=== PATIENT | female | born 1975 | race Caucasian/White ===

== ENCOUNTER → 2017-08-25 | Outpatient (CLI) | payer OTHER | END | disposition home or self-care (01) | LOC: LAB 12:20 → LAB SHORT 12:20 | DX: R30.0 Dysuria (principal) | CPT/HCPCS: 87086 ==

== ENCOUNTER 2018-07-09 16:00 | Inpatient (IN) | payer OTHER ==
[~2018-07-09] VITALS: Ht 167.6 cm; Wt 75.2 kg
[2018-07-09] MEDS ORDERED: Verotin-Gr Cap1 EACH PO (16:27)
[2018-07-09 16:55] LABS: BASOPHILS ABSOLUTE AUTO 0.01 K/mm3 (0.00-0.23); BASOPHILS PERCENT AUTO 0 % (0-2); EOSINOPHILS PERCENT AUTO 0 % (0-6); Hematocrit 35.3 % (33.0-51.0); Hemoglobin 11.9 g/dL (11.5-16.0); IMMATURE GRAN ABSOLUTE AUTO 0.03 K/mm3 (0.00-0.10); IMMATURE GRAN PERCENT AUTO 1 % (0-1); LYMPHOCYTES ABSOLUTE AUTO 1.32 K/mm3 (0.84-5.20); LYMPHOCYTES PERCENT AUTO 22 % (21-46); MONOCYTES ABSOLUTE AUTO 0.39 K/mm3 (0.16-1.47); MONOCYTES PERCENT AUTO 7 % (4-13); Mean Corpuscular HGB 32.4 pg (26.0-34.0); Mean Corpuscular HGB Conc 33.7 g/dL (31.5-36.5); Mean Corpuscular Volume 96 fL (80-100); Mean Platelet Volume 11.1 fL (9.1-12.4); NEUTROPHILS ABSOLUTE AUTO 4.21 K/mm3 (1.96-9.15); NEUTROPHILS PERCENT AUTO 71 % (41-73); Platelet Count 248 K/mm3 (150-400); RDW Coefficient Variation 12.8 % (11.7-14.2); RDW Standard Deviation 44.9 fL (35.1-46.3); Red Blood Cell Count 3.67 M/mm3 (3.80-5.20); White Blood Cell Count 5.96 K/mm3 (4.00-11.30)
--- NOTE | 2018-07-11 02:00 | NUR ---
PT UNABLE TO GET UP DUE TO LEG STILL BEING NUMB. TOWELS PLACED UNDER PT SO PT CAN TRY AND VOID, PT UNABLE TO. RN UNABLE TO HELP PT VOID WITH USE OF FUNDAL PRESSURE. WILL CONT TO MONITOR PT VOIDING STATUS AND FUNDAL HEIGHT.
[2018-07-11 05:50] LABS: BASOPHILS ABSOLUTE AUTO 0.02 K/mm3 (0.00-0.23); BASOPHILS PERCENT AUTO 0 % (0-2); EOSINOPHILS PERCENT AUTO 0 % (0-6); Hematocrit 31.7 % (33.0-51.0); Hemoglobin 10.2 g/dL (11.5-16.0); IMMATURE GRAN ABSOLUTE AUTO 0.09 K/mm3 (0.00-0.10); IMMATURE GRAN PERCENT AUTO 1 % (0-1); LYMPHOCYTES ABSOLUTE AUTO 1.17 K/mm3 (0.84-5.20); LYMPHOCYTES PERCENT AUTO 9 % (21-46); MONOCYTES ABSOLUTE AUTO 0.72 K/mm3 (0.16-1.47); MONOCYTES PERCENT AUTO 6 % (4-13); Mean Corpuscular HGB 31.8 pg (26.0-34.0); Mean Corpuscular HGB Conc 32.2 g/dL (31.5-36.5); Mean Platelet Volume 11.3 fL (9.1-12.4); NEUTROPHILS ABSOLUTE AUTO 10.81 K/mm3 (1.96-9.15); NEUTROPHILS PERCENT AUTO 84 % (41-73); Platelet Count 202 K/mm3 (150-400); RDW Coefficient Variation 13.2 % (11.7-14.2); RDW Standard Deviation 47.1 fL (35.1-46.3); Red Blood Cell Count 3.21 M/mm3 (3.80-5.20); White Blood Cell Count 12.81 K/mm3 (4.00-11.30)
[2018-07-11 05:51] LABS: Mean Corpuscular Volume 99 fL (80-100)
--- NOTE | 2018-07-11 19:13 | NUR ---
REPORT TO VIRGIE CALDERON
[2018-07-12] MEDS ORDERED: IBUP800 PO (10:07)
[2018-07-12] MEDS ORDERED: Percocet 5-3251 EACH PO (10:07)
--- NOTE | 2018-07-12 10:21 | NUR ---
PRESCRIPTION FOR [facility]S OINTMENT CALLED INTO [facility].
--- NOTE | 2018-07-12 13:58 | NUR ---
PT DISCHARGED HOME WITH NB AND SO. NO ACUTE DISTRESS NOTED. PRESCRIPTION FOR IBUPROFEN AND PERCOCET GIVEN TO PT. PRESCRIPTION FOR [facility]MENT CALLED INTO [facility] AND MESSAGE LEFT. DISCHARGE INSTRUCTIONS REVIEWED WITH PT AND SO, BOTH VERBALIZED UNDERSTANDING AND DENY ANY FURTHER QUESTIONS OR CONCERNS. PT AMBULATORY TO CAR.
== END 2018-07-12 12:48 | disposition home or self-care (01) | DRG 807 ==
LOC: OBS 16:00 → BC 16:08 → OBS 16:15 → BC 16:16
PROVIDERS: ADMIT Nurse Practitioner Obstetrics & Gynecology
PROC: 10D07Z6 Extraction of Products of Conception, Vacuum, Via Natural or Artificial Opening (ICD-10-PCS; principal; 2018-07-11)
PROC: 6A550ZT Pheresis of Cord Blood Stem Cells, Single (ICD-10-PCS; 2018-07-11)
PROC: 10907ZC Drainage of Amniotic Fluid, Therapeutic from Products of Conception, Via Natural or Artificial Opening (ICD-10-PCS; 2018-07-11)
PROC: 3E033VJ Introduction of Other Hormone into Peripheral Vein, Percutaneous Approach (ICD-10-PCS; 2018-07-11)
DX: O76 Abnormality in fetal heart rate and rhythm complicating labor and delivery (principal); Z37.0 Single live birth; Z3A.39 39 weeks gestation of pregnancy; O66.0 Obstructed labor due to shoulder dystocia
CPT/HCPCS: 36415; 51702; 85025; 85460; 96372; J1885; J2001; J2210; J2405; J2590; J3010; J7120

== ENCOUNTER 2020-03-17 08:04 | Day surgery (SDC) | payer OTHER ==
[~2020-03-17] VITALS: Ht 167.6 cm; Wt 54.1 kg
[~2020-03-17 08:04] MED LIST: IBUP800 PO; Percocet 5-3251 EACH PO; Verotin-Gr Cap1 EACH PO
[2020-03-17] MEDS ORDERED: SERT50 PO (08:49)
--- NOTE | 2020-03-17 09:49 | NUR ---
03/17/20 0949 Layo Stephenson ABDOMEN PREPPED BY [facility].[place].
--- NOTE | 2020-03-17 10:52 | NUR ---
03/17/20 1052 Autumn Chen PT EXPRESSES THAT SHE HAS TOLERABLE 3/10 PAIN AND NO NAUSEA, WOULD LIKE TO BE DISCHARGED HOME, HER WAS CALLED AND IS HEADED TO PICK HER UP. WILL DISCHARGE PT ACCORDING TO ORDERS.
== END 2020-03-17 11:11 | disposition home or self-care (01) ==
LOC: ORSCSDS 08:04
PROVIDERS: Obstetrics & Gynecology
PROC: 0UT74ZZ Resection of Bilateral Fallopian Tubes, Percutaneous Endoscopic Approach (ICD-10-PCS; principal; 2020-03-17 09:00)
DX: Z30.2 Encounter for sterilization (principal); N83.8 Other noninflammatory disorders of ovary, fallopian tube and broad ligament
CPT/HCPCS: 88302; J0171; J0690; J1100; J1885; J2250; J2405; J2704; J2710; J3010

== ENCOUNTER 2020-08-02 10:39 | Emergency (ER) | payer OTHER ==
[~2020-08-02] VITALS: Ht 167.6 cm; Wt 54.4 kg
[~2020-08-02 10:39] MED LIST changes: +SERT50 PO
[2020-08-02 10:56] LABS: BASOPHILS ABSOLUTE AUTO 0.02 K/mm3 (0.00-0.23); BASOPHILS PERCENT AUTO 0 % (0-2); EOSINOPHILS PERCENT AUTO 0 % (0-6); Hematocrit 44.4 % (33.0-51.0); Hemoglobin 15.1 g/dL (11.5-16.0); IMMATURE GRAN ABSOLUTE AUTO 0.02 K/mm3 (0.00-0.10); IMMATURE GRAN PERCENT AUTO 0 % (0-1); LYMPHOCYTES PERCENT AUTO 9 % (21-46); MONOCYTES ABSOLUTE AUTO 0.23 K/mm3 (0.16-1.47); MONOCYTES PERCENT AUTO 3 % (4-13); Mean Corpuscular HGB 30.8 pg (26.0-34.0); Mean Corpuscular Volume 90 fL (80-100); Mean Platelet Volume 10.1 fL (9.1-12.4); NEUTROPHILS ABSOLUTE AUTO 5.88 K/mm3 (1.96-9.15); NEUTROPHILS PERCENT AUTO 87 % (41-73); Platelet Count 240 K/mm3 (150-400); RDW Coefficient Variation 11.9 % (11.7-14.2); RDW Standard Deviation 39.3 fL (35.1-46.3); Red Blood Cell Count 4.91 M/mm3 (3.80-5.20); White Blood Cell Count 6.75 K/mm3 (4.00-11.30)
[2020-08-02 11:18] LABS: Alanine Aminotransfer (ALT/SGP 21 U/L (12-78); Albumin, Blood 4.2 g/dL (3.4-5.0); Alk Phos 48 U/L (50-136); Anion Gap 8 mmol/L (6-16); Aspartate Aminotrans (AST/SGOT 13 U/L (12-37); Blood Urea Nitrogen 13 mg/dL (8-24); Bun/Creatinine Ratio 17.3 (12.0-20.0); CO2, Blood 26 mmol/L (21-32); Calcium, Blood 8.8 mg/dL (8.5-10.1); Chloride, Blood 102 mmol/L (98-108); Creatinine, Blood 0.75 mg/dL (0.40-1.00); Glomerular Filtration Rate >60 (60-); Glucose, Blood 92 mg/dL (70-99); Potassium, Blood 3.1 mmol/L (3.5-5.5); Sodium, Blood 136 mmol/L (136-145); Total Protein, Blood 8.2 g/dL (6.4-8.2)
[2020-08-02] MEDS ORDERED: ONDA4ODT MM (12:24)
== END 2020-08-02 12:34 | disposition home or self-care (01) ==
LOC: ER 10:39
PROVIDERS: Emergency Medicine
DX: R11.2 Nausea with vomiting, unspecified (principal); Z79.899 Other long term (current) drug therapy
CPT/HCPCS: 36415; 80053; 83690; 85025; 96374; 99283-25; J2405; J7030

== ENCOUNTER 2022-09-26 15:06 | Emergency (ER) | payer OTHER ==
[~2022-09-26] VITALS: Ht 167.6 cm; Wt 59.0 kg
[~2022-09-26 15:06] MED LIST changes: +ONDA4ODT MM
[2022-09-26 15:41] VITALS: BP 158/96
== END 2022-09-26 18:28 | disposition home or self-care (01) ==
LOC: ER 15:06
DX: H57.11 Ocular pain, right eye (principal); Z79.899 Other long term (current) drug therapy
CPT/HCPCS: 99282; A9270